=== PATIENT | female | born 1945 | race Two or more races ===

== ENCOUNTER 2017-04-24 11:49 | Emergency (ER) | payer MEDICARE, OTHER ==
[~2017-04-24] VITALS: Ht 167.6 cm; Wt 99.8 kg
[~2017-04-24 11:49] MED LIST: CALCIUM CITRAT1 EA10 PO; CIPRO500 MG PO; MELATONIN1 M1 SL; MELOXICAM15 MG PO; NAPROXEN500 M2 ORAL; NITROFURANTOIN100 MG PO; PHENAZOPYRIDIN200 MG ORAL; PROBIOTIC1 EAC5 PO; VENLAFAXINE HCL75 M2 ORAL; VITAMIN D250000 UNI1 ORAL; ZANTAC150 MG ORAL; melatonin
[2017-04-24 12:06] VITALS: BP 137/75
[2017-04-24] MEDS ORDERED: Morphine Sulfate 4mg/ml Inj IM ONE (12:30)
[2017-04-24] MEDS ORDERED: NORCO 5-325 TA1 EAC1 ORAL (14:15)
[2017-04-24 14:27] VITALS: BP 131/76
--- NOTE | 2017-04-25 14:10 | Diagnostic Imaging Report ---
Indications:Pain, status post fall Technique: Three or 4 views of the left elbow Comparison: None Findings: There is a fracture of the proximal ulna. This involves the coronoid as well as the olecranon and is comminuted, minimally displaced. There is an associated joint effusion. Lateral view also suggests slight irregularity of the radial head, likely due to degenerative change but a nondisplaced fracture cannot be ruled out. There is a joint effusion Impression: Positive for comminuted fracture of the proximal ulna, involving the olecranon as well as the coronoid process Cannot rule out nondisplaced radial head fracture as well Findings previously discussed by phone with nurse phillip Casas in the emergency room
--- NOTE | 2017-04-27 12:17 | Emergency Room Report ---
History of Present Illness General Chief Complaint: Multiple Trauma/Fall Source: Patient Present Illness [facility] The patient is a 71-year-old female presenting for left elbow pain after slipping and falling today. She states that she was in the shower, slipped, and fell onto her left elbow. She denies hitting her head or loss of consciousness. She denies any other pain besides her left elbow. She denies previous injury to the area. Pain is a 10 out of 10 dull ache and does not radiate. She states that she is unable to move it. She denies any other symptoms including BOWMAN, dizziness, CP, SOB, numbness Allergies: Coded Allergies: No Known Allergies (Unverified , 05/18/13) Patient History Past Medical History: see triage record Pertinent Family History: none Reviewed Nursing Documentation: PMH: Agreed, PSxH: Agreed Nursing Documentation-PMH Hx Cardiac Problems: No Hx Hypertension: No Hx Pacemaker: No Hx Asthma: No Hx COPD: No Hx Diabetes: No Hx Cancer: No Hx Gastrointestinal Problems: No - STOMACH ULCER Hx Dialysis: No Hx Neurological Problems: No Hx Cerebrovascular Accident: No Hx Seizures: No Review of Systems All Other Systems: negative except mentioned in HPI Physical Exam Vital Signs Date Time Temp Pulse Resp B/P (MAP) Pulse Ox O2 Delivery O2 Flow Rate FiO2 04/24/17 11:49 98.4 72 18 137/75 98 Room Air Sp02 EP Interpretation: reviewed, normal General Appearance: no apparent distress, alert, GCS 15, non-toxic Head: normocephalic, atraumatic Eyes: bilateral eye normal inspection, bilateral eye PERRL ENT: hearing grossly normal, normal pharynx, no angioedema, normal voice Neck: full range of motion, supple/symm/no masses Respiratory: chest non-tender, lungs clear, normal breath sounds, speaking full sentences Cardiovascular #1: regular rate, rhythm, no edema Musculoskeletal: decreased range of motion, tender - L elbow diffusely Neurologic: alert, oriented x3, responsive, motor strength/tone normal, sensory intact, speech normal Psychiatric: judgement/insight normal, memory normal, mood/affect normal, no suicidal/homicidal ideation Skin: normal color, no rash, warm/dry, well hydrated Procedures Splinting Splinting : Consent: Verbal Location: L arm Hand-Made Type: plaster Splint: posterior long Pre-Proc Neuro Vasc Exam: normal Post-Proc Neuro Vasc Exam: normal Patient Tolerated: Well Complications: None Medical Decision Making PA Attestation Dr. Parker is my supervising physician. Patient management was discussed with my supervising physician Diagnostic Impression: Primary Impression: Elbow fracture, left Qualified Codes: S42.402A - Unspecified fracture of lower end of left humerus , initial encounter for closed fracture ER Course The patient is a 71-year-old female presenting for left elbow pain after slipping and falling today Ddx considered include but not limited to sprain/strain, fracture, contusion PE: NAD TTP over the L elbow diffusely. Limited AROM due to pain. No ecchymosis. Xray: Positive for comminuted fracture of the proximal ulna, involving the olecranon as well as the coronoid process Cannot rule out nondisplaced radial head fracture as well Left arm long posterior splint is placed with a sling and the patient is provided pain medication. She'll be discharged home with prescription for pain medication and needs to followup with her primary doctor for further evaluation and possible referral for orthopedics. She agrees with plan. ER precautions are given Last Vital Signs Date Time Temp Pulse Resp B/P (MAP) Pulse Ox O2 Delivery O2 Flow Rate FiO2 04/24/17 14:27 98.4 71 18 131/76 98 Room Air Status: improved Disposition: HOME, SELF-CARE Condition: Improved Scripts Hydrocodone Bit/Acetaminophen 5-325* (NORCO 5-325 TABLET*) 1 Each Tablet 1 TAB ORAL Q6HR Y for For Pain, #12 TAB Prov: SUJATHA SALVADOR 04/24/17 Referrals: NOT CHOSEN IPA/,REFERRING (PCP) Patient Instructions: Elbow Fracture, Simple Additional Instructions: I discussed my findings with the patient. All questions and concerns have been answered. Treatment and medication compliance have been addressed. I advised the patient that they need to follow up with primary doctor within 5 days. Return to ED if pain remains or worsens, numbness or tingling occurs, new rash is noticed, fever is noticed, or if needed for any reason. Patient verbalized understanding of discharge instructions. SUJATHA SALVADOR Apr 27, 2017 12:17
== END 2017-04-24 14:30 | disposition home or self-care (01) ==
LOC: EDBD 11:49 → EMR 14:30
DX: S52.092A Other fracture of upper end of left ulna, initial encounter for closed fracture (principal); W01.0XXA Fall on same level from slipping, tripping and stumbling without subsequent striking against object, initial encounter; Y92.002 Bathroom of unspecified non-institutional (private) residence as the place of occurrence of the external cause
CPT/HCPCS: 29105; 73080; 99283; J2270

== ENCOUNTER 2017-04-27 16:58 | Emergency (ER) | payer MEDICARE, OTHER ==
[~2017-04-27] VITALS: Ht 154.9 cm; Wt 98.9 kg
[~2017-04-27 16:58] MED LIST changes: +NORCO 5-325 TA1 EAC1 ORAL
[2017-04-27] MEDS ORDERED: Morphine Sulfate 4mg/ml Inj IM ONE (18:00)
[2017-04-27] MEDS ORDERED: NORCO 10-325 T1 EACH ORAL (18:41)
[2017-04-27 18:45] VITALS: BP 170/72
--- NOTE | 2017-04-27 22:07 | Emergency Room Report ---
History of Present Illness General Chief Complaint: Cast Check Source: Patient Present Illness HPI The patient is a 71-year-old female presenting for continued left elbow pain as well as left arm swelling after fracture 3 days ago. She was seen in this emergency department 3 days ago and diagnosed with elbow fracture after the patient slipped and fell. A long posterior splint was placed and the patient states that this is too tight. Pain is a 10 out of 10 throbbing sensation. She was prescribed Coats which temporarily helps. She followed up with her primary doctor yesterday who requested the images on a disc. She did not obtain referral for orthopedics. She denies other symptoms including fever, chills, numbness or tingling, shortness of breath, chest pain Allergies: Coded Allergies: No Known Allergies (Unverified , 05/18/13) Patient History Past Medical History: see triage record Pertinent Family History: none Last Menstrual Period: Post Reviewed Nursing Documentation: PMH: Agreed, PSxH: Agreed Nursing Documentation-PMH Hx Cardiac Problems: No Hx Hypertension: No Hx Pacemaker: No Hx Asthma: No Hx COPD: No Hx Diabetes: No Hx Cancer: No Hx Gastrointestinal Problems: Yes - STOMACH ULCER Hx Dialysis: No Hx Neurological Problems: No - Left elbow fracture 2018. Hx Cerebrovascular Accident: No Hx Seizures: No Review of Systems All Other Systems: negative except mentioned in HPI Physical Exam Vital Signs Date Time Temp Pulse Resp B/P (MAP) Pulse Ox O2 Delivery O2 Flow Rate FiO2 04/27/17 17:18 97.7 76 15 175/76 99 Room Air Sp02 EP Interpretation: reviewed, normal General Appearance: no apparent distress, alert, GCS 15, non-toxic Head: normocephalic, atraumatic Eyes: bilateral eye normal inspection, bilateral eye PERRL ENT: hearing grossly normal, normal pharynx, no angioedema, normal voice Musculoskeletal: back normal, decreased range of motion - L elbow, swelling - From L elbow to L hand, tender - L elbow Neurologic: alert, oriented x3, responsive, motor strength/tone normal, sensory intact, speech normal Psychiatric: judgement/insight normal, memory normal, mood/affect normal, no suicidal/homicidal ideation Skin: normal color, no rash, warm/dry Procedures Splinting Splinting : Consent: Verbal Location: L arm Hand-Made Type: plaster Splint: posterior long Pre-Proc Neuro Vasc Exam: normal Post-Proc Neuro Vasc Exam: normal Patient Tolerated: Well Complications: None Medical Decision Making PA Attestation Dr. Veliz is my supervising physician. Patient management was discussed with my supervising physician Diagnostic Impression: Primary Impression: Elbow fracture, left Qualified Codes: S42.402A - Unspecified fracture of lower end of left humerus , initial encounter for closed fracture ER Course The patient is a 71-year-old female presenting for continued left elbow pain as well as left arm swelling after fracture 3 days ago Ddx considered include but not limited to sprain/strain, fracture, contusion, DVT Physical exam: No apparent distress Left arm: Original splint was removed. The patient immediately feels better. There is swelling from the elbow to the left hand. No skin changes. Warm and dry. Radial pulse 2+. Full active range of motion of wrist and fingers intact. Patient is able to extend the elbow to approximately 45. A new splint is placed and the patient states that it feels much better. She is given prescription for pain medication and will followup with her primary doctor. She is given her x-ray reports as well as images on a desk. ER precautions given Last Vital Signs Date Time Temp Pulse Resp B/P (MAP) Pulse Ox O2 Delivery O2 Flow Rate FiO2 04/27/17 18:45 97.5 76 15 170/72 99 Room Air Status: improved Disposition: HOME, SELF-CARE Condition: Improved Scripts Hydrocodone Bit/Acetaminophen 10-325* (NORCO 10-325*) 1 Each Tablet 1 TAB ORAL Q6H Y for For Pain, #10 TAB 0 Refills PRN PAIN Prov: SUJATHA SALVADOR 04/27/17 Patient Instructions: Elbow Fracture, Simple, Cast or Splint Care Additional Instructions: You have been provided with the radiographs on a desk as well as the x-ray report. Please followup with your primary doctor and obtain referral to see orthopedics as soon as possible for further evaluation and treatment SUJATHA SALVADOR Apr 27, 2017 22:07
== END 2017-04-27 18:47 | disposition home or self-care (01) ==
LOC: EMR 17:45
DX: S42.402D Unspecified fracture of lower end of left humerus, subsequent encounter for fracture with routine healing (principal); W01.0XXD Fall on same level from slipping, tripping and stumbling without subsequent striking against object, subsequent encounter
CPT/HCPCS: 29105; 99282; J2270